=== PATIENT | male | born 1945 | race Caucasian/White ===

== ENCOUNTER 2017-02-13 23:01 | Observation (INO) ==
[2017-02-13] MEDS ORDERED: Ondansetron 4 MG/2 ML VIAL IVP ONE (23:46)
[2017-02-13] MEDS ORDERED: 0.9 % Sodium Chloride 1,000 ML IVC ONE (23:46)
[2017-02-14 00:03] LABS: Basophils % 0.5 %; Eosinophils # 0.1 K/mcL (0.0-0.6); Eosinophils % 1.7 %; Hematocrit 40.5 % (37.5-50.1); Hemoglobin 13.6 g/dL (12.9-16.9); Immature Granulocytes % 0.3 % (0-4); Immature Platelets 2.9 % (1.1-6.1); Lymphocytes # 2.1 K/mcL (0.6-4.6); Lymphocytes % 32.6 %; Mean Corpuscular HGB Conc 33.6 g/dL (31.6-35.5); Mean Corpuscular Hemoglobin 29.6 pg (28.0-33.3); Mean Corpuscular Volume 88.2 fL (83.0-100.0); Mean Platelet Volume 9.7 fL (9.4-12.4); Monocytes # 0.5 K/mcL (0.0-1.3); Monocytes % 7.1 %; Neutrophils # 3.8 K/mcL (1.6-8.9); Platelet Count 163 K/mcL (140-400); Red Blood Count 4.59 M/mcL (4.19-5.50); Red Cell Distribution Width 12.7 % (11.5-14.5); Segmented Neutrophils % 57.8 %
[2017-02-14 00:08] LABS: INR 1.2; Prothrombin Time 12.6 Seconds (9.4-12.1)
[2017-02-14 00:11] LABS: Activated Partial Thrombo Time 29.1 Seconds (26.0-36.0)
[2017-02-14 00:19] LABS: Alanine Aminotransferase 21 Units/L (0-55); Albumin/Globulin Ratio 1.6 (1.1-2.2); Alkaline Phosphatase 58 Units/L (38-126); Amylase 53 Units/L (25-125); Aspartate Amino Transferase 21 Units/L (5-34); BUN/Creatinine Ratio 28 (6-26); Bilirubin,Direct 0.5 mg/dL (0.0-0.5); Bilirubin,Indirect 0.7 mg/dL (0.0-1.2); Bilirubin,Total 1.2 mg/dL (0.2-1.2); Blood Urea Nitrogen 23 mg/dL (8-26); Calcium 9.3 mg/dL (8.6-10.8); Carbon Dioxide 29 mEq/L (19-29); Chloride 105 mEq/L (98-109); Globulin 2.5 g/dL (2.4-3.5); Glucose 92 mg/dL (70-99); Lipase 428 Units/L (8-78); Osmolality,Calculated 293 (280-300); Potassium 3.8 mEq/L (3.5-4.5); Sodium 140 mEq/L (136-145); Total Protein 6.5 g/dL (6.0-8.3); eGFR For African Americans > 60 (> 60); eGFR For Non-African Americans > 60 (> 60)
--- NOTE | 2017-02-14 00:26 | Emergency Department Note ---
Disposition Clinical Impression: Chest pain Qualifiers: Chest pain type: unspecified Qualified Code(s): R07.9 - Chest pain, unspecified Pancreatitis Qualifiers: Chronicity: acute Pancreatitis type: unspecified pancreatitis type Acute pancreatitis complication: unspecified Qualified Code(s): K85.90 - Acute pancreatitis without necrosis or infection, unspecified Disposition: Admitted As Inpatient Condition: Good Time of Disposition: 02:46 Abdominal Pain HPI - General Chief Complaint: ED Chest Pain Stated Complaint: abdominal bloating/chest pain Time Seen by Provider: 02/13/17 23:24 Source: patient Mode of arrival: ambulatory Limitations: no limitations Nursing Notes Reviewed: Yes Vital Signs Reviewed: Yes - History of Present Illness HPI Narrative: Patient presents to the ED with the chief complaint of abdominal pain and chest pain. Patient reports that he has had complaints of abdominal pain, distention and discomfort for the last several years. He has had multiple workups including endoscopy, colonoscopy and CT scan. States that he gets very distended and bloated a few times a week. States that he woke up this morning and was having another one of these episodes. He reports that anytime he eats or drinks anything he seems to get more distended and more bloated. However, today he had a new symptom, which was bilateral chest discomfort. States that it seemed to be worse whenever he would take a deep breath and also when he would eat and drink. Reports that this pain is similar to when he had a heart attack several years ago. He does have 3 stents and was concerned. He complains of some epigastric discomfort that slightly different than baseline as well. No vomiting. He has had some diarrhea Pt Subjective Complaint: abdominal pain Onset (ago): day(s) (1) Pain Scale: 0 - Related Data Home Medications Medication Instructions Recorded Confirmed Amlodipine Besylate 5 mg PO DAILY 02/14/17 02/14/17 Aspirin [Lo-Dose Aspirin EC] 81 mg PO DAILY 02/14/17 02/14/17 Atorvastatin Calcium [Lipitor] 40 mg PO DAILY 02/14/17 02/14/17 Cetirizine HCl [All Day Allergy] 10 mg PO DAILY 02/14/17 02/14/17 Clopidogrel Bisulfate [Plavix] 75 mg PO DAILY 02/14/17 02/14/17 Finasteride [Proscar] 5 mg PO DAILY 02/14/17 02/14/17 Hydrocodon-Acetamin 7.5-325/15 7.5 - 325 mg PO Q6H PRN 02/14/17 02/14/17 Ibuprofen [Motrin] 800 mg PO TID PRN 02/14/17 02/14/17 LORazepam [Ativan] 1 mg PO TID 02/14/17 02/14/17 Lansoprazole [Prevacid] 30 mg PO DAILY 02/14/17 02/14/17 Losartan Potassium [Cozaar] 50 mg PO DAILY 02/14/17 02/14/17 Multivit-Min/FA/Lycopen/Lutein PO DAILY 02/14/17 [Centrum Silver Tablet] [place]-3 Fatty Acids [Fish Oil] 1,400 mg PO DAILY 02/14/17 02/14/17 Sotalol HCl [Betapace] 40 mg PO BID 02/14/17 02/14/17 Tamsulosin HCl [Flomax] 0.4 mg ONCE 02/14/17 02/14/17 Previous Rx's Medication Instructions Recorded Dicyclomine [Bentyl] 10 mg PO QID PRN #14 capsule 07/04/15 Cyclobenzaprine [Flexeril] 10 mg PO HS PRN #10 tablet 01/14/16 Sulfamethoxazole/Trimeth DS 1 each PO BID #20 tablet 05/03/16 [Bactrim DS] Allergies Allergy/AdvReac Type Severity Reaction Status Date / Time heparin Allergy Redness of Verified 05/03/16 21:01 Skin Constitutional: Denies: fever Cardiovascular: Reports: chest pain Gastrointestinal: Reports: abdominal pain Abdominal Pain PMH - Past Medical History Medical history: Reports: CVA, hyperlipidemia, hypertension, myocardial infarction Male Surgical History: Reports: angioplasty/stent, herniorrhaphy Psychiatric history: Reports: no psych history - Social History Smoking status: Never smoker Alcohol use: Reports: none Drug use: Reports: none Physical Exam - General Limitations: no limitations General appearance: alert, in no apparent distress - Head Head exam: atraumatic, normocephalic, normal inspection - Eye Eye exam: Present: normal appearance, PERRL, EOMI - ENT ENT exam: normal exam, normal oropharynx, mucous membranes moist - Neck Neck exam: Present: normal inspection, full ROM, trachea midline - Chest Chest inspection: Present: normal inspection, symmetric chest wall rise - Respiratory Respiratory exam: Present: normal lung sounds bilaterally - Cardiovascular Cardiovascular exam: Present: regular rate, normal rhythm, normal heart sounds - Abdominal Exam Abdominal exam: Present: soft, tenderness, distention. Absent: guarding, rebound, ascites Abdominal tenderness: Present: epigastrium, mild - Extremities Exam Extremities exam: Present: normal inspection, full ROM. Absent: tenderness, pedal edema - Neurological Exam Neurological exam: Present: alert, oriented X3 - Psychiatric Psychiatric exam: Present: normal affect, normal mood - Skin Skin exam: Present: warm, dry, intact, normal color Course Course Narrative: 71-year-old male presenting with chest pain and abdominal distention. Cardiac workup initiated, but we will also check abdominal labs. Does state that he has been a drinker in the past and this could be related to pancreatitis. Also get an x-ray to evaluate for obstruction, although he has not been vomiting - Reevaluation(s) Reevaluation #1: Patient's chest pain is pretty much gone, labs are relatively unremarkable other than an elevated lipase. Could be consistent with pancreatitis. X-rays showed ileus. I do not think this is a small bowel obstruction because he is not that tender. He has not been vomiting and there is no obvious tympany on his abdominal exam. We will admit to the hospitalist Vital Signs Temperature 97.6 F 02/13/17 23:03 Pulse Rate 62 02/13/17 23:03 Respiratory Rate 18 02/13/17 23:03 Blood Pressure 144/76 02/13/17 23:03 O2 Sat by Pulse Oximetry 95 02/13/17 23:03 Temperature 97.5 F L 02/14/17 03:45 Pulse Rate 63 02/14/17 03:45 Respiratory Rate 16 02/14/17 03:45 Blood Pressure 142/75 02/14/17 03:45 O2 Sat by Pulse Oximetry 93 02/14/17 03:45 Oxygen Delivery Oxygen Delivery Room Air Abdominal Pain - Lab Data Result diagrams: 02/13/17 23:56 02/13/17 23:56 Lab Results 02/13/17 02/13/17 02/13/17 Range/Units 23:56 23:56 23:56 WBC 6.5 (4.3-11.1) K/mcL RBC 4.59 (4.19-5.50) M/mcL Hgb 13.6 (12.9-16.9) g/dL Hct 40.5 (37.5-50.1) % MCV 88.2 (83.0-100.0) fL MCH 29.6 (28.0-33.3) pg MCHC 33.6 (31.6-35.5) g/dL RDW 12.7 (11.5-14.5) % Plt Count 163 (140-400) K/mcL MPV 9.7 (9.4-12.4) fL Immature Gran % 0.3 (0-4) % Seg Neutrophils % 57.8 % Lymphocytes % 32.6 % Monocytes % 7.1 % Eosinophils % 1.7 % Basophils % 0.5 % Neutrophils # 3.8 (1.6-8.9) K/mcL Lymphocytes # 2.1 (0.6-4.6) K/mcL Monocytes # 0.5 (0.0-1.3) K/mcL Eosinophils # 0.1 (0.0-0.6) K/mcL Basophils # 0.0 (0.0-0.2) K/mcL Immature Plt Fraction 2.9 (1.1-6.1) % PT 12.6 H (9.4-12.1) Seconds INR 1.2 APTT 29.1 (26.0-36.0) Seconds Sodium 140 (136-145) mEq/L Potassium 3.8 (3.5-4.5) mEq/L Chloride 105 (98-109) mEq/L Carbon Dioxide 29 (19-29) mEq/L BUN 23 (8-26) mg/dL Creatinine 0.81 (0.72-1.25) mg/dL Est GFR ( Amer) > 60 (> 60) Est GFR (Non-Af Amer) > 60 (> 60) BUN/Creatinine Ratio 28 H (6-26) Glucose 92 (70-99) mg/dL Calculated Osmolality 293 (280-300) Lactic Acid (0.5-2.2) mmol/L Calcium 9.3 (8.6-10.8) mg/dL Total Bilirubin 1.2 (0.2-1.2) mg/dL Direct Bilirubin 0.5 (0.0-0.5) mg/dL Indirect Bilirubin 0.7 (0.0-1.2) mg/dL AST 21 (5-34) Units/L ALT 21 (0-55) Units/L Alkaline Phosphatase 58 (38-126) Units/L Troponin I (0-0.03) ng/mL Serum Total Protein 6.5 (6.0-8.3) g/dL Albumin 4.0 (3.5-5.0) g/dL Globulin 2.5 (2.4-3.5) g/dL Albumin/Globulin Ratio 1.6 (1.1-2.2) Amylase 53 (25-125) Units/L Lipase 428 H (8-78) Units/L Urine Color (Yellow) Urine Clarity (Clear) Urine pH (5.0-8.0) pH Units Ur Specific [place] (1.010-1.025) Urine Protein (Neg-Trace) mg/dL Urine Glucose (UA) (Normal) mg/dL Urine Ketones (Negative) mg/dL Urine Blood (Negative) Urine Nitrite (Negative) Urine Bilirubin (Negative) Urine Urobilinogen (Normal) mg/dL Ur Leukocyte Esterase (Negative) Urine Microscopic RBC (0-3) per hpf Urine Microscopic WBC (0-3) per hpf Ur Squamous Epith Cells (None-Few) per lpf Amorphous Sediment (Few) Urine Bacteria (None-Few) per hpf Hyaline Casts (None-Few) per lpf Ur Culture Indicated? (NO) 02/13/17 02/13/17 02/14/17 Range/Units 23:56 23:56 00:20 WBC (4.3-11.1) K/mcL RBC (4.19-5.50) M/mcL Hgb (12.9-16.9) g/dL Hct (37.5-50.1) % MCV (83.0-100.0) fL MCH (28.0-33.3) pg MCHC (31.6-35.5) g/dL RDW (11.5-14.5) % Plt Count (140-400) K/mcL MPV (9.4-12.4) fL Immature Gran % (0-4) % Seg Neutrophils % % Lymphocytes % % Monocytes % % Eosinophils % % Basophils % % Neutrophils # (1.6-8.9) K/mcL Lymphocytes # (0.6-4.6) K/mcL Monocytes # (0.0-1.3) K/mcL Eosinophils # (0.0-0.6) K/mcL Basophils # (0.0-0.2) K/mcL Immature Plt Fraction (1.1-6.1) % PT (9.4-12.1) Seconds INR APTT (26.0-36.0) Seconds Sodium (136-145) mEq/L Potassium (3.5-4.5) mEq/L Chloride (98-109) mEq/L Carbon Dioxide (19-29) mEq/L BUN (8-26) mg/dL Creatinine (0.72-1.25) mg/dL Est GFR ( Amer) (> 60) Est GFR (Non-Af Amer) (> 60) BUN/Creatinine Ratio (6-26) Glucose (70-99) mg/dL Calculated Osmolality (280-300) Lactic Acid 0.8 (0.5-2.2) mmol/L Calcium (8.6-10.8) mg/dL Total Bilirubin (0.2-1.2) mg/dL Direct Bilirubin (0.0-0.5) mg/dL Indirect Bilirubin (0.0-1.2) mg/dL AST (5-34) Units/L ALT (0-55) Units/L Alkaline Phosphatase (38-126) Units/L Troponin I 0.00 (0-0.03) ng/mL Serum Total Protein (6.0-8.3) g/dL Albumin (3.5-5.0) g/dL Globulin (2.4-3.5) g/dL Albumin/Globulin Ratio (1.1-2.2) Amylase (25-125) Units/L Lipase (8-78) Units/L Urine Color Yellow (Yellow) Urine Clarity Cloudy A (Clear) Urine pH 7.5 (5.0-8.0) pH Units Ur Specific [place] 1.024 (1.010-1.025) Urine Protein Negative (Neg-Trace) mg/dL Urine Glucose (UA) Normal (Normal) mg/dL Urine Ketones Negative (Negative) mg/dL Urine Blood Negative (Negative) Urine Nitrite Negative (Negative) Urine Bilirubin Negative (Negative) Urine Urobilinogen Normal (Normal) mg/dL Ur Leukocyte Esterase Small H (Negative) Urine Microscopic RBC 0-3 (0-3) per hpf Urine Microscopic WBC 3-5 H (0-3) per hpf Ur Squamous Epith Cells Many H (None-Few) per lpf Amorphous Sediment Moderate H (Few) Urine Bacteria Many H (None-Few) per hpf Hyaline Casts None Seen (None-Few) per lpf Ur Culture Indicated? YES A (NO) Attestation Statement - Attestation Attestation: I, Armen Leon, examined this patient and my medical decision-making was reviewed with the [employer] SUPERVISOR/PA/Advanced Practice Nurse/Resident Physician. I agree with the documented findings, disposition and treatment plan as described except to the extent set forth below. 71-year-old male presents with concerns of epigastric pain and abdominal bloating. Patient states he has a long history of distention of his abdomen which generally improves after administration of laxatives however today he developed significantly increased epigastric pain compared to his previous episodes. Patient has had multiple endoscopies and imaging studies of his abdomen for similar epigastric pain. On physical exam today the patient has lungs that are clear to auscultation bilaterally. Abdomen is soft, mildly distended however it is mild to tender to palpation in the epigastrium without evidence of rigidity or rebound. Laboratory evaluation revealed a negative troponin. EKG showed sinus bradycardia with a rate of 59. Lipase returned elevated compared to previous. No history of pancreatitis per the patient. X- ray of the abdomen showed possible partial small bowel obstruction however he has been passing gas emergency department and has not vomited. Patient started on IV fluids. He will be admitted to the hospital for further care and evaluation of likely pancreatitis.
[2017-02-14 00:38] LABS: Bilirubin,Urine Negative (Negative); Blood,Urine Negative (Negative); Clarity,Urine Cloudy (Clear); Color,Urine Yellow (Yellow); Glucose,Urine (UA) Normal (Normal); Ketones,Urine Negative (Negative); Leukocyte Esterase,Urine Small (Negative); Nitrite,Urine Negative (Negative); PH,Urine 7.5 pH Units (5.0-8.0); Protein,Urine Negative (Neg-Trace); Specific Gravity,Urine 1.024 (1.010-1.025); Urobilinogen,Urine Normal (Normal)
[2017-02-14 00:48] LABS: Hyaline Casts,Urine None Seen per lpf (None-Few); Squamous Epithelial Cell,Urine Many per lpf (None-Few)
[2017-02-14 00:56] LABS: Amorphous Sediment,Urine Moderate (Few); Bacteria,Urine Many per hpf (None-Few); RBC,Urine 0-3 per hpf (0-3)
[2017-02-14] MEDS ORDERED: Naloxone 0.4 MG/ML INJ IVP PRN (04:16)
[2017-02-14] MEDS ORDERED: *HR* Morphine 2 MG/ML SYRINGE IVP PRN (04:16)
[2017-02-14] MEDS ORDERED: Acetaminophen 325 MG TABLET PO PRN (04:16)
--- NOTE | 2017-02-14 04:36 | Internal Med History&Physical ---
Date of Encounter: 02/14/17 Time of Encounter: 04:29 Assessment and Plan (1) Ileus Current visit: Yes Status: Acute 1. Will keep on clear liquid diet and recheck xray later today. 2. Abdominal exam is benign and will monitor closely. (2) Pancreatitis Current visit: Yes Status: Acute 1. Will check GB ultrasound and keep npo other than clear liquids. 2. Monitor clinically. 3. May need MRCP if GB ultrasound negative. Qualifiers: Chronicity: acute Pancreatitis type: unspecified pancreatitis type Acute pancreatitis complication: unspecified Qualified Code(s): K85.90 - Acute pancreatitis without necrosis or infection, unspecified (3) Chest pain Current visit: Yes Status: Acute 1. Will cycle troponins, EKGs, and monitor clinically. 2. Continue home meds as appropriate. 3. Cardiac work-up once ileus and GI issues resolve. Qualifiers: Chest pain type: precordial pain Qualified Code(s): R07.2 - Precordial pain (4) DVT prophylaxis Current visit: Yes Status: Acute 1. EPCD's. 2. Patient reports allergy to Heparin. Internal Medicine - H&P: HPI Chief complaint: abdominal garcia/bloating; chest pain Admitted From: Emergency Dept Plans for Post Hospital Care: Home History of present illness: Mr. Badillo is a 71 year old male who presents with complaints of abdominal pain and bloating. He has been having chronic bloating and abdominal cramping off and on for years. However, over the last couple of days, it has worsened to the point where it had become very uncomfortable and radiated to his chest today. This prompted him to come to the ER where he was diagnosed with an ileus and some mild pancreatitis. His troponin and EKG were negative, and he was subsequently admitted for further workup and care. Upon my assessment of the patient, he has no complaints other than some bloating and distention of his abdomen. He denies any nausea or vomiting. He has been somewhat constipated, however. He has been passing some flatus. He denies any fevers, chills, or myalgias. He has never had pancreatitis before. He does not drink alcohol. He still has gallbladder. He is not having significant food intolerance. However, due to chronic bloating and cramping, his appetite has dropped over last few years. He follows with a digital account director in [place] and has had extensive workup in the past -- all of which was negative. He denies any chest pain presently. He denies any recent exertional dyspnea or chest pain. He has had a prior ND in the past. Past Med Surg Social Fam HX - Past Medical History Attestation: Yes The following information was validated with the patient. Source: patient, old records reviewed Medical history: CVA, hyperlipidemia, hypertension, myocardial infarction Psychiatric history: no psych history - Past Surgical History Surgical History: other (tonsillectomy) - Social History Smoking Status: Never smoker Smokeless Tobacco Status: No Alcohol use: none Drug use: none Occupational status: retired Current living situation: Home, With Family Activity Level: Independent ambulation - Family History Mother Living Status: Hx Family GI Disorders: No Father Living Status: Hx Family GI Disorders: No Internal Medicine - H&P: Meds Dicyclomine [Bentyl] 10 mg PO QID PRN #14 capsule 07/04/15 [Rx] Cyclobenzaprine [Flexeril] 10 mg PO HS PRN #10 tablet 01/14/16 [Rx] Sulfamethoxazole/Trimeth DS [Bactrim DS] 1 each PO BID #20 tablet 05/03/16 [Rx] Amlodipine Besylate 5 mg PO DAILY 02/14/17 [History] Aspirin [Lo-Dose Aspirin EC] 81 mg PO DAILY 02/14/17 [History] Atorvastatin Calcium [Lipitor] 40 mg PO DAILY 02/14/17 [History] Cetirizine HCl [All Day Allergy] 10 mg PO DAILY 02/14/17 [History] Clopidogrel Bisulfate [Plavix] 75 mg PO DAILY 02/14/17 [History] Finasteride [Proscar] 5 mg PO DAILY 02/14/17 [History] Hydrocodon-Acetamin 7.5-325/15 7.5 - 325 mg PO Q6H PRN 02/14/17 [History] Ibuprofen [Motrin] 800 mg PO TID PRN 02/14/17 [History] LORazepam [Ativan] 1 mg PO TID 02/14/17 [History] Lansoprazole [Prevacid] 30 mg PO DAILY 02/14/17 [History] Losartan Potassium [Cozaar] 50 mg PO DAILY 02/14/17 [History] Multivit-Min/FA/Lycopen/Lutein [Centrum Silver Tablet] PO DAILY 02/14/17 [ History] [place]-3 Fatty Acids [Fish Oil] 1,400 mg PO DAILY 02/14/17 [History] Sotalol HCl [Betapace] 40 mg PO BID 02/14/17 [History] Tamsulosin HCl [Flomax] 0.4 mg ONCE 02/14/17 [History] Allergies heparin Allergy (Verified 05/03/16 21:01) Redness of Skin - Constitutional Constitutional: no chills, no fever(s), no night sweats - EENT Eyes: no blurry vision, no change in vision Ears: no ear pain, no tinnitus Nose, mouth and throat: no nasal congestion, no sinus pain, no sore throat - Cardiovascular Cardiovascular ROS IM: chest pain, no diaphoresis, no dyspnea, no dyspnea on exertion, no palpitations - Respiratory Respiratory: no cough, no dyspnea, no hemoptysis - Gastrointestinal Gastrointestinal: abdominal pain, bloating, constipation, cramping, no diarrhea , no hematemesis, no hematochezia, no melena, no nausea, no vomiting - Genitourinary Genitourinary ROS male: no dysuria, no flank pain, no hematuria - Musculoskeletal Musculoskeletal ROS IM: no atrophy, no back pain - Integumentary Integumentary IM: no rash, no jaundice - Neurological Neurological ROS: headache(s), no dizziness, no focal weakness, no frequent falls - Psychiatric Psychiatric: no anxiety, no depression - Endocrine Endocrine IM: no cold intolerance, no heat intolerance - Hematologic/Lymphatic Hematologic/Lymphatic: no lymphadenopathy - Allergic/Immunologic Allergic/Immunologic: no GI upset with certain foods - Constitutional Vitals: Temp Pulse Resp BP Pulse Ox 97.5 F L 63 16 142/75 93 02/14/17 03:45 02/14/17 03:45 02/14/17 03:45 02/14/17 03:45 02/14/17 03:45 General appearance: Present: cooperative, A&O X 3, pleasant, no acute distress - Head Head exam: Present: atraumatic, normal inspection - Eye Eye exam: Present: EOMI, normal appearance, PERRL. Absent: scleral icterus Pupils: Present: normal accommodation - ENT ENT exam: Present: mucous membranes moist, normal exam - Neck Neck exam general surgery: Present: full ROM, supple. Absent: lymphadenopathy, tenderness - Expanded Neck Exam Neck exam: Absent: carotid bruit - Respiratory Respiratory exam: Present: CTAB. Absent: chest wall tenderness, rales, rhonchi , wheezes - Cardiovascular Cardiovascular exam: Present: RRR, +S1, +S2. Absent: diastolic murmur, systolic murmur - GI/Abdominal GI/Abdominal exam: Present: distended, hypoactive bowel sounds, no peritoneal signs. Absent: guarding, hepatomegaly, rebound, splenomegaly, tenderness - Extremities Exam Extremities exam: Present: full ROM, warm. Absent: calf tenderness, joint swelling, pedal edema - Back Exam Back exam: Present: normal inspection. Absent: CVA tenderness (L), CVA tenderness (R) - Neurological Exam Neurological exam: Present: alert, CN II-XII intact, oriented X3, no focal deficits, strengths equal and symetr throughout - Psychiatric Psychiatric exam: Present: normal affect, normal mood - Skin Skin exam: Present: dry, warm. Absent: rash Internal Med - H&P Results - Labs CBC & Chem 7: 02/13/17 23:56 02/13/17 23:56 - EKG Data -: EKG Interpreted by Myself EKG shows normal: sinus rhythm - EKG Data Prior EKG available for review: no EKG comments: 02/14/17 04:41 NSR; old inferior ND; no acute changes - Diagnostic Studies Chest x-ray Status: image reviewed by me (lungs clear; ileus with significant stool in colon )
[2017-02-14] MEDS ORDERED: *HR* Heparin 5,000 UNIT/ML VIAL SQ SCH (06:00)
[2017-02-14] MEDS: 0.9 % Sodium Chloride w KCl 20 MEQ/1,000 ML MLS IVC SCH ×2 (06:06→20:41)
[2017-02-14] MEDS: Finasteride 5 MG TABLET PO SCH (09:37)
[2017-02-14] MEDS: Aspirin Enteric Coated 81 MG Tablet PO SCH (09:37)
[2017-02-14] MEDS: amLODIPine 5 MG TABLET PO SCH (09:37)
[2017-02-14] MEDS: *HR* LORazepam 1 MG TABLET PO PRN ×2 (09:43→22:47)
[2017-02-14] MEDS ORDERED: *HR* HYDROcodone/Acet 7.5/325 mg TABLET PO PRN (12:39)
--- NOTE | 2017-02-14 17:26 | Electrocardiograph Report ---
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
--- NOTE | 2017-02-14 17:31 | Electrocardiograph Report ---
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
--- NOTE | 2017-02-14 18:40 | Event Note ---
Date of Encounter: 02/14/17 Time of Encounter: 12:30 Patient seen and examined. On examination, patient sitting upright in bed watching television. Patient currently denies pain at this time. He states his abdomen continues to feel bloated. He has been flatulent. Gallbladder ultrasound unremarkable. Acute abdominal series initially revealing ileus versus small bowel obstruction with left lower lobe atelectasis. Repeat acute abdominal series consistent with ileus. Patient does not have any clinical signs of a bowel obstruction. Continue liquid diet and advance as he tolerates. Repeat acute abdominal series tomorrow morning. Patient stating he has had issues with his bowel since 2003 and currently has a GI doctor and gallop a less. He denies chest pain or shortness of breath. His urinalysis is abnormal. He denies dysuria but states he has BPH and has issues at times and states he currently has increased frequency but denies dysuria. Will await culture. Patient stating that he had an urge to have a bowel movement and then was unable to do so until approximately 12 hours later however his bowel movement was still soft. In further discussion with the patient, patient has done a lot of research regarding his chronic abdominal bloating and constipation. Recommend if not done already check for H. pylori and possible malabsorption disorders. We will leave this to the discretion of his GI provider. We will focus on his ileus during this visit. Regarding his elevated lipase levels, patient is a nondrinker with an unremarkable lipid profile. Gallbladder ultrasound is unremarkable. LFTs and bilirubin normal. We will continue to trend. Continue clear liquids until repeat acute abdominal series tomorrow morning. ITS Impressions Chest/Abdomen X-ray 02/13/17 23:46 IMPRESSION: 1. Ileus versus partial small bowel obstruction. 2. Left basilar atelectasis or, less likely, pneumonia. D/ / Anand Agudelo MD / Anand Agudelo MD Interpreting Provider: Anand Agudelo MD Chest/Abdomen X-ray 02/14/17 08:00 IMPRESSION: 1. Mildly dilated loops of small bowel within the abdomen which are nonspecific and may reflect ileus. 2. No free air. 3. Minimal left basilar atelectasis. D/ / Juliette Phillips MD / Juliette Phillips MD Interpreting Provider: Juliette Phillips MD Gallbladder Ultrasound 02/14/17 08:00 IMPRESSION: No cholelithiasis. No biliary dilation. D/ / Joshua Staley MD / Joshua Staley MD Interpreting Provider: Joshua Staley MD
[2017-02-14] MEDS: Artificial Tears SOLN 15 ML BOTTLE OP SCH (21:26)
[2017-02-15 04:42] LABS: Basophils % 0.5 %; Eosinophils # 0.1 K/mcL (0.0-0.6); Eosinophils % 1.9 %; Hematocrit 39.5 % (37.5-50.1); Hemoglobin 13.3 g/dL (12.9-16.9); Immature Granulocytes % 0.3 % (0-4); Lymphocytes # 1.7 K/mcL (0.6-4.6); Lymphocytes % 29.4 %; Mean Corpuscular HGB Conc 33.7 g/dL (31.6-35.5); Mean Corpuscular Volume 89.2 fL (83.0-100.0); Mean Platelet Volume 10.6 fL (9.4-12.4); Monocytes # 0.4 K/mcL (0.0-1.3); Monocytes % 6.8 %; Neutrophils # 3.6 K/mcL (1.6-8.9); Platelet Count 155 K/mcL (140-400); Red Blood Count 4.43 M/mcL (4.19-5.50); Red Cell Distribution Width 12.6 % (11.5-14.5); Segmented Neutrophils % 61.1 %
[2017-02-15 04:58] LABS: Alanine Aminotransferase 17 Units/L (0-55); Albumin 3.7 g/dL (3.5-5.0); Albumin/Globulin Ratio 1.6 (1.1-2.2); Alkaline Phosphatase 56 Units/L (38-126); Aspartate Amino Transferase 19 Units/L (5-34); BUN/Creatinine Ratio 13 (6-26); Bilirubin,Total 1.4 mg/dL (0.2-1.2); Calcium 8.9 mg/dL (8.6-10.8); Carbon Dioxide 30 mEq/L (19-29); Chloride 108 mEq/L (98-109); Chol/HDL Ratio 4.7 (0-4.9); Cholesterol 146 mg/dL (< 200); Globulin 2.3 g/dL (2.4-3.5); Glucose 90 mg/dL (70-99); HDL Cholesterol 31 mg/dL (40-59); LDL Cholesterol,Calculated 89 mg/dL (0-99); Lipase 28 Units/L (8-78); Magnesium 1.9 mg/dL (1.6-2.6); Osmolality,Calculated 289 (280-300); Potassium 4.3 mEq/L (3.5-4.5); Sodium 140 mEq/L (136-145); Triglycerides 130 mg/dL (< 150); eGFR For African Americans > 60 (> 60); eGFR For Non-African Americans > 60 (> 60)
[2017-02-15 05:00] LABS: Blood Urea Nitrogen 10 mg/dL (8-26)
[2017-02-15] MEDS ORDERED: Multivit/Ca/Min/Fe/FA 1 TAB TABLET PO SCH (09:00)
[2017-02-15] MEDS ORDERED: Loratadine 10 MG TABLET PO SCH (09:00)
[2017-02-15] MEDS: amLODIPine 5 MG TABLET PO SCH (10:01)
[2017-02-15] MEDS: Finasteride 5 MG TABLET PO SCH (10:01)
[2017-02-15] MEDS: *HR* LORazepam 1 MG TABLET PO PRN (10:01)
[2017-02-15] MEDS: Aspirin Enteric Coated 81 MG Tablet PO SCH (10:02)
[2017-02-15] MEDS: Artificial Tears SOLN 15 ML BOTTLE OP SCH (10:18)
[2017-02-15] MEDS: 0.9 % Sodium Chloride w KCl 20 MEQ/1,000 ML MLS IVC SCH (10:54)
[2017-02-15 15:24] VITALS: BP 153/84
--- NOTE | 2017-02-15 18:51 | Discharge Summary ---
Date of Encounter: 02/15/17 Time of Encounter: 10:30 (and 1530) - Discharge Diagnosis (1) Ileus Priority: Primary Status: Resolved (2) UTI (urinary tract infection) Priority: Primary Status: Acute Comments: Official culture report still pending on the discharge, he was treated with ceftriaxone while admitted, will send home on Cefdinir and call him tomorrow if the antibiotics needs changed (3) Chronic constipation Priority: Secondary Status: Chronic Comments: Patient has a GI specialist in [facility]. He has been dealing with chronic bloating and constipation since 2003. Recommend continued follow up outpatient. (4) BPH (benign prostatic hyperplasia) Priority: Secondary Status: Chronic Comments: Patient stating he is being followed by his urologist for his BPH. He states that he does not completely empty his bladder. Urinary tract infection noted during this visit, recommend follow-up outpatient. Patient stating that he is avoiding surgery at this time. (5) Chest pain Priority: Primary Status: Ruled-out Comments: Patient denied chest pain throughout this admission. His pain was in his abdomen. Qualifiers: Chest pain type: precordial pain Qualified Code(s): R07.2 - Precordial pain (6) Pancreatitis Priority: Primary Status: Resolved Comments: Patient denied abdominal pain on day of discharge and was able to tolerate a regular diet. Lipase normalized. Follow-up outpatient. Qualifiers: Chronicity: acute Pancreatitis type: unspecified pancreatitis type Acute pancreatitis complication: unspecified Qualified Code(s): K85.90 - Acute pancreatitis without necrosis or infection, unspecified (7) DVT prophylaxis Priority: Primary Status: Acute Comments: Observation patient, up ad lizabeth. - Discharge Medications Prescriptions: Cefdinir [Omnicef] 300 mg PO BID #20 capsule Home Medications: Dicyclomine [Bentyl] 10 mg PO QID PRN #14 capsule 07/04/15 [Rx] Amlodipine Besylate 5 mg PO DAILY 02/14/17 [History] Aspirin [Lo-Dose Aspirin EC] 81 mg PO DAILY 02/14/17 [History] Atorvastatin Calcium [Lipitor] 40 mg PO DAILY 02/14/17 [History] Carboxymethylcellulos/Glycerin [Refresh Optive Gel Eye Drops] 1 drop OP BID [History] Cetirizine HCl [All Day Allergy] 10 mg PO DAILY 02/14/17 [History] Clopidogrel Bisulfate [Plavix] 75 mg PO DAILY 02/14/17 [History] Finasteride [Proscar] 5 mg PO DAILY 02/14/17 [History] HYDROcodone/Acet 7.5/325 mg [[place] 7.5-325 mg] 1 tab PO Q6H PRN 02/14/17 [ History] Ibuprofen [Motrin] 800 mg PO TID PRN 02/14/17 [History] L. Acidophilus/Pectin, [place] [Acidophilus Probiotic Capsule] 1 cap PO DAILY [History] LORazepam [Ativan] 1 mg PO TID 02/14/17 [History] Lansoprazole [Prevacid] 30 mg PO DAILY 02/14/17 [History] Losartan Potassium [Cozaar] 50 mg PO DAILY 02/14/17 [History] Multivit-Min/FA/Lycopen/Lutein [Centrum Silver Tablet] 1 tab PO DAILY 02/14/17 [ History] [place]-3 Fatty Acids [Fish Oil] 1,400 mg PO DAILY 02/14/17 [History] Peppermint Oil [Ibgard] 90 mg PO BID 02/14/17 [History] Sotalol HCl [Betapace] 40 mg PO BID 02/14/17 [History] Tamsulosin HCl [Flomax] 0.4 mg ONCE 02/14/17 [History] Cefdinir [Omnicef] 300 mg PO BID #20 capsule 02/15/17 [Rx] Allergies/Adverse Reactions: Allergies heparin Allergy (Verified 05/03/16 21:01) Redness of Skin Procedures/tests Complete & Pending: Procedures Performed prior 72 hours Category Date Time Status US gall bladder [US] Routine Exams 02/14/17 08:00 Completed ECG 12 lead ECG [ECG] AM 0600 Y 02/14/17 06:00 Completed ECG 12 lead ECG [ECG] Routine Y 02/13/17 23:11 Completed Date of admission: 02/14/17 02:48 Primary care physician: Iris Talley Discharging clinician: Tarah Weaver Anticipated date of discharge: 02/15/17 - Patient Status Disposition: Home, Self-Care Condition: Good Functional capacity at discharge: independent ambulation Overall status at discharge: patient is back to baseline - Discharge Instructions Follow Up With: Kevin Kamara DO [Primary Care Provider] - 02/25/17 1:30 pm [place], GI provider [Other] Additional Instructions: Follow-up with primary care provider as scheduled, follow up with your GI provider when possible - Diet and Activity Activity: increase activity as tolerated Diet: advance to your usual diet Hospital course: Mr. Badillo is a 71 year old male with past medical history of prior CVA, hyperlipidemia, hypertension, [place], chronic bloating and abdominal cramping since 2003. Patient presented to the emergency department chief complaint of abdominal pain and bloating. Patient stating on the couple days prior to presentation, his pain had worsened to the point where he became very comfortable and the pain had radiated up to his chest on the day of presentation. This prompted him to present to the emergency department. Workup in the emergency department consistent with ileus versus small bowel obstruction and mild pancreatitis with mildly elevated lipase levels. Troponin and EKGs were unremarkable. He was admitted to the hospitalist service for further evaluation and management. His exam was more consistent with an ileus and he tolerated a clear diet well. He was admitted and observed over the course of 2 nights. Repeat imaging of his abdomen revealing that the ileus had resolved and his diet was advanced to a regular diet and he tolerated it well. He had a rather sizable bowel movement prior to discharge and his abdominal pain and bloating had improved greatly. Gallbladder ultrasound was unremarkable. Elevated lipase resolved. LFTs and bilirubin were normal. Patient also had an abnormal urinalysis and given his history of urinary retention secondary to his BPH, he was placed on ceftriaxone. His 2 most recent urinary tract infections were Citrobacter freundii complex with multiple resistances to ciprofloxacin, levofloxacin, Bactrim. He has no antibiotic allergies and tolerated ceftriaxone well so he was sent home on Cefdinir. Prior culture reports revealing susceptibility to cephalosporins. The official culture report was unavailable at time of discharge and he was instructed that he will be called the day after discharge if his antibiotic needs changed. During this admission, patient had a lot of questions regarding his chronic bloating and abdominal cramping. In further discussion with the patient, patient has done a lot of research regarding his chronic abdominal bloating and constipation. Recommend if not done already check for H. pylori and possible malabsorption disorders. We will leave this to the discretion of his GI provider in [facility]. ([facility] GI provider unavailable during this admission). As he was able to tolerate a regular diet and had a large bowel movement and became asymptomatic afterwards, he was discharged home in stable condition with close outpatient follow-up recommended. His stool was sent off for H. pylori testing at his request recommend follow-up outpatient for results. ITS Impressions Chest/Abdomen X-ray 02/13/17 23:46 IMPRESSION: 1. Ileus versus partial small bowel obstruction. 2. Left basilar atelectasis or, less likely, pneumonia. D/ / Anand Agudelo MD / Anand Agudelo MD Interpreting Provider: Anand Agudelo MD Chest/Abdomen X-ray 02/14/17 08:00 IMPRESSION: 1. Mildly dilated loops of small bowel within the abdomen which are nonspecific and may reflect ileus. 2. No free air. 3. Minimal left basilar atelectasis. D/ / Juliette Phillips MD / Juliette Phillips MD Interpreting Provider: Juliette Phillips MD Gallbladder Ultrasound 02/14/17 08:00 IMPRESSION: No cholelithiasis. No biliary dilation. D/ / Joshua Staley MD / Joshua Staley MD Interpreting Provider: Joshua Staley MD Chest/Abdomen X-ray 02/15/17 06:00 IMPRESSION: No acute process in the chest. No bowel obstruction or free air. Mildly prominent bowel loops improved since prior examination. This may be within normal limits or may represent resolving mild ileus. D/ / Todd Guy MD / Todd Guy MD Interpreting Provider: Todd Guy MD - Time Spent with Patient Total time spent providing and/or coordinating discharge services: - Constitutional Vitals: Temp Pulse Resp BP Pulse Ox 97.9 F 68 14 153/84 93 02/15/17 15:22 02/15/17 15:22 02/15/17 15:22 02/15/17 15:22 02/15/17 15:22 General appearance: Present: cooperative, A&O X 3, pleasant, no acute distress, answers questions appropriately - Head Head exam: Present: atraumatic, normocephalic - Eye Eye exam: Present: PERRL, conjuntiva pink, sclera anicteric Pupils: Present: PERRL - Neck Neck exam general surgery: Present: supple, trachea midline. Absent: lymphadenopathy - Respiratory Respiratory exam: Present: CTAB. Absent: accessory muscle use, rales, respiratory distress, rhonchi, wheezes - Cardiovascular Cardiovascular exam: Present: RRR, +S1, +S2. Absent: diastolic murmur, gallop, rubs, systolic murmur - GI/Abdominal GI/Abdominal exam: Present: hyperactive bowel sounds, soft, no peritoneal signs. Absent: distended, tenderness - Extremities Exam Extremities exam: Present: warm, radial pulses palpable and symetrical. Absent : calf tenderness, cyanotic, pedal edema - Neurological Exam Neurological exam: Present: alert, CN II-XII intact, normal gait, oriented X3, no focal deficits, strengths equal and symetr throughout. Absent: pronater drift, facial droop, speech deficit - Skin Skin exam: Present: dry, intact, normal color, warm
== END 2017-02-15 19:31 | disposition home or self-care (01) ==
LOC: EMEROO 23:01 → INTOOBSV 02-14 02:48 → SUATTDRO 02-14 02:48 → 3BNU 02-14 02:48
PROVIDERS: ADMIT Pediatrics; ATTEND Nurse Practitioner Family